=== PATIENT | male | born 1960 | race Caucasian/White ===

== ENCOUNTER → 2021-12-16 | Outpatient (CLI) | payer MEDICAID, SELFPAY ==
[2021-12-16 12:33] LABS: Microalbumin,Random Urine 9.8 mg/L (NO RANGE EST.); Microalbumin:Creatinine Ratio 10.4 mg/g CRE (<30 mg/g CRE)
[2021-12-16 12:34] LABS: AST(SGOT) 22 U/L (15-37); Alanine Aminotransfer ALT/SGPT 40 U/L (16-61); Albumin, Serum 3.8 g/dL (3.2-5.0); Alkaline Phosphatase 100 U/L (45-117); Anion Gap 7 (5-15); BUN 23 mg/dL (7-18); BUN/Creat Ratio 19.7 RATIO (10-20); Calcium,Total 9.2 mg/dL (8.5-10.1); Chloride 102 mmol/L (98-107); Cholesterol 128 mg/dL (200); Creatinine, Serum 1.17 mg/dL (0.70-1.30); EST Glomerular Filtration Rate 67 mL/min (>60); Est Glom Filt Rate - Afr Amer 81 mL/min (>60); Glucose 226 mg/dL (74-106); High Density Lipoprotein 34 mg/dL; Potassium 4.5 mmol/L (3.5-5.1); Protein, Total 7.8 g/dL (6.4-8.2); Sodium Level 136 mmol/L (136-145); Thyroid Stim Hormone (TSH) 1.94 uIU/mL (0.358-3.74); Triglycerides 221 mg/dL; Very Low Density Lipoprotein 44 mg/dL (5-40)
[2021-12-16 12:55] LABS: Vitamin D,25 Hydroxy 37.7 ng/mL
== END | disposition home or self-care (01) ==
LOC: BIMLAB 11:19
PROVIDERS: Referring Provider Nurse Practitioner Family; Visit Provider Nurse Practitioner Family
DX: E11.9 Type 2 diabetes mellitus without complications (principal)
CPT/HCPCS: 36415; 80053; 80061; 82043; 82306; 82570; 84443

== ENCOUNTER → 2022-03-18 | Outpatient (CLI) | payer MEDICAID, SELFPAY ==
--- NOTE | 2022-03-18 07:05 | ECHOD_ITS ---
Reason For Study: S/P CABG Procedure This was a 2D Doppler, Color Flow transthoracic echocardiogram. Exam performed in department. Left Ventricle Normal LV size. Left ventricular systolic function is normal. The estimated ejection fraction is 60 %. No regional wall motion abnormalities noted. Right Ventricle Normal RV size. Normal systolic function. Atria Normal left atrium. Normal right atrium. Mitral Valve Normal mitral valve. Tricuspid Valve Normal tricuspid valve. Aortic Valve Trisinus/trileaflet aortic valve. Mild focal aortic valve calcification. Pulmonic Valve Normal pulmonic valve. Trivial pulmonic valve insufficiency. Great Vessels Normal aortic root. The pulmonary artery is normal size. Normal inferior vena cava. Pericardium/Pleural No pericardial effusion. MMode/2D Measurements & Calculations LVIDd: 5.4 cm IVSd: 1.00 cm Ao root diam: 3.5 cm LVIDs: 4.1 cm FS: 24.5 % RVDd: 2.9 cm LAV(MOD-bp): 37.6 ml LVAd ap4: 29.5 cm2 SV(MOD-sp4): 39.4 ml LAV(MOD-bp) Indexed: 17.5 ml/m2 LVLd ap4: 7.8 cm LAV(MOD-sp2): 26.4 ml EDV(MOD-sp4): 90.5 ml LAV(MOD-sp4): 51.9 ml EDV(sp4-el): 94.3 ml LVAs ap4: 20.1 cm2 LVLs ap4: 6.8 cm ESV(MOD-sp4): 51.1 ml ESV(sp4-el): 50.1 ml EF(MOD-sp4): 43.5 % EF(sp4-el): 46.8 % SV(sp4-el): 44.2 ml LA A4 area: 19.6 cm2 LA dimension(2D): 4.5 cm RA A4 area: 15.5 cm2 Time Measurements MV dec time: 0.22 sec Doppler Measurements & Calculations MV E max jaylen: 62.6 cm/sec Lat Peak E' Jaylen: 9.3 cm/sec Med Peak E' Jaylen: 5.1 cm/sec MV A max jaylen: 84.5 cm/sec E/E' lat: 6.7 E/E' med: 12.2 MV E/A: 0.74 MV V2 max: 78.3 cm/sec Ao V2 max: 142.1 cm/sec MV max P.5 mmHg MV dec slope: 298.1 cm/sec2 Ao max P.1 mmHg MV V2 mean: 45.4 cm/sec Ao V2 mean: 98.9 cm/sec MV mean P.92 mmHg Ao mean P.5 mmHg MV V2 VTI: 24.0 cm Ao V2 VTI: 29.2 cm LV V1 max: 104.3 cm/sec PA V2 max: 105.1 cm/sec TR max jaylen: 230.3 cm/sec LV V1 max P.4 mmHg PA V2 mean: 68.4 cm/sec TR max P.2 mmHg LV V1 mean P.3 mmHg LV V1 mean: 71.0 cm/sec LV V1 VTI: 19.8 cm ECHO/Echo Complete Interpretation Summary Normal LV size. Left ventricular systolic function is normal. The estimated ejection fraction is 60 %. Mild focal aortic valve calcification. Ordering Physician: Noam Rodriguez Referring Physician: Noam Rodriguez Performed By: Migdalia Ledesma RCS
--- NOTE | 2022-03-18 16:55 | STRESSREP_ITS ---
Stress Test Report Exercise myocardial perfusion stress test. 61-year-old man with a history of coronary artery disease Stress protocol: Resting KG demonstrates normal sinus rhythm with a rate of 62 bpm normal intervals are noted resting blood pressure is 124/88 mmHg. The patient exercised according to regular Gerhard protocol for total duration of 5 minutes a nd 31 seconds. The maximum heart rate attained was 126 bpm which was 80% of max impacted heart rate the maximum workload was 7 metabolic equivalents. At rest there were no ST or T wave changes noted suggest ischemia at peak exercise upsloping ST changes were noted with did not meet the criteria for ischemia. Occasional premature ventricular complexes were noted. The peak blood pressure was 172/80 mmHg. Myocardial perfusion protocol. 11.8 mCi of technetium 99m sestamibi was injected at rest. The patient exercised according to regular Gerhard protocol and at peak exercise 34.7 mCi of technetium 99m sestamibi was injected stress images were obtained stress and rest images were reconstructed in comparing the short axis vertical long and horizontal long axis. Gated images were also obtained to Perfusion SPECT analysis: Review of the stress images demonstrate normal uptake of tracer noted in the anterior wall and lateral wall. A small portion of the anteroseptal wall and the inferior septal wall towards the apex demonstrates reduced perfusion which is improved on the resting images. The above is suggestive of inferoseptal and apical ischemia and basal anteroseptal ischemia. No obvious previous infarct is noted. Gated SPECT analysis: The gated ejection fraction is 43%. Conclusion: Abnormal exercise myocardial perfusion stress test at a moderate workload. Inferoseptal and apical ischemia noted Basal anteroseptal ischemia noted. Mild cardiomyopathy.
== END | disposition home or self-care (01) ==
LOC: CVS 07:02
PROVIDERS: PCP Family Medicine; Referring Provider Internal Medicine Cardiovascular Disease; Visit Provider Internal Medicine Cardiovascular Disease
DX: I25.10 Atherosclerotic heart disease of native coronary artery without angina pectoris (principal); Z95.1 Presence of aortocoronary bypass graft
CPT/HCPCS: 78452; 93017; 93306; A9500; A4216

== ENCOUNTER → 2022-03-25 | Outpatient (CLI) | payer MEDICAID, SELFPAY ==
--- NOTE | 2022-03-25 09:50 | RAD_ITS ---
INDICATION: dyspnea EXAMINATION/TECHNIQUE: X-RAY - XR Chest 2 Views COMPARISON: None. FINDINGS: LINES/DEVICES: None. LUNGS: Asymmetric elevation right hemidiaphragm. No airspace opacity or abnormal interstitial pattern. No nodule or mass. No pleural effusion or pneumothorax. MEDIASTINUM AND CARDIOVASCULAR STRUCTURES: Normal size and contour of the cardiomediastinal silhouette. No evidence of pulmonary vascular congestion. Sternotomy wires with fractured inferior sternotomy wire. Surgical clips seen along the inferior right lateral cardiac shadow and in the right upper lobe. Intimal calcifications thoracic aorta. BONES AND SOFT TISSUES: No fracture or focal osseous lesion. RAD/Chest PA and Lateral IMPRESSION: 1. No radiographic evidence of acute cardiopulmonary disease. 2. Asymmetric elevation right hemidiaphragm with moderate volume loss may be associated with prior partial lobectomy. 3. Prior thoracotomy. Electronically Signed: Dale Burrell DO at 20:26 EDT ,
== END | disposition home or self-care (01) ==
LOC: RAD 09:46
PROVIDERS: PCP Family Medicine; Referring Provider Internal Medicine Cardiovascular Disease; Visit Provider Internal Medicine Cardiovascular Disease
DX: R06.09 Other forms of dyspnea (principal); I82.409 Acute embolism and thrombosis of unspecified deep veins of unspecified lower extremity; E11.9 Type 2 diabetes mellitus without complications; I25.10 Atherosclerotic heart disease of native coronary artery without angina pectoris; I10 Essential (primary) hypertension; E78.5 Hyperlipidemia, unspecified; Z95.1 Presence of aortocoronary bypass graft; Z86.73 Personal history of transient ischemic attack (TIA), and cerebral infarction without residual deficits
CPT/HCPCS: 71046

== ENCOUNTER 2022-03-28 06:52 | Day surgery (SDC) | payer MEDICAID, SELFPAY ==
[2022-03-25 09:37] VITALS: BMI 29.7
[2022-03-25 10:37] LABS: Absolute Lymphocyte Count 1.62 X10^3/uL (0.83-4.51); Absolute Neutrophil Count 3.3 X10^3/uL (2.0-7.7); Basophil# 0.04 X10^3/uL; Basophil% 0.7 % (0-1); Eosinophil# 0.13 X10^3/uL; Eosinophils% 2.4 % (0-5); Hematocrit 47.2 % (40-54); Hemoglobin 17.1 g/dL (13.0-16.5); Lymphocyte # 1.62 X10^3/ul (0.83-4.51); Lymphocyte % 29.5 % (19-41); Mean Corp Hgb Conc 36.2 g/dL (32-36); Mean Corpuscular Hgb 31.3 pg (27.0-32.0); Mean Corpuscular Volume 86.4 fL (80-94); Mean Platelet Vol. 8.9 fl (6.2-12.0); Monocyte# 0.42 X10^3/uL; Monocyte% 7.6 % (0-10); NRBC Flagged by Analyzer 0 % (0-5); Neutrophil # 3.28 X10^3/uL (2.7-7.7); Neutrophil % 59.6 % (47-70); Platelet Count 160 K/mm3 (150-450); RBC Distribution Width SD 40.3 fl (35.1-43.9); Red Blood Count 5.46 M/mm3 (4.6-6.2); White Blood Count 5.5 K/mm3 (4.4-11.0)
[2022-03-25 10:53] LABS: Anion Gap 6 (5-15); BUN 17 mg/dL (7-18); BUN/Creat Ratio 14.2 RATIO (10-20); Calcium,Total 9.2 mg/dL (8.5-10.1); Chloride 104 mmol/L (98-107); EST Glomerular Filtration Rate 65 mL/min (>60); Est Glom Filt Rate - Afr Amer 79 mL/min (>60); Estimated Creatinine Clearance 65.06 ml/min; Glucose 253 mg/dL (74-106); Potassium 4.4 mmol/L (3.5-5.1); Sodium Level 139 mmol/L (136-145)
--- NOTE | 2022-03-28 09:19 | CL.D_ITS ---
Patient Name: HARJEET CONTRERAS Study Date: 03/28/2022 Performing: Noam Rodriguez MD Ht: 70.5 inches 179.07 cm : 1960 Wt: 209.99 lbs 95.25 kg Age: 62 Gender: male BSA: 2.14 PROCEDURE(S) PERFORMED DC03-(20508)LHC/COR/LV/CABG CLINICAL PROFILE AND INDICATIONS Indications: Suspected CAD Heart Failure: None Stress/Imaging Date: 03/18/22Stress Test with SPECT MPI: Positive Intermediate Risk CAD Presentations: Other: sob CONCLUSIONS Severe coronary artery disease with totally occluded [place] vessels and an occluded saphenous vein graft to the right coronary artery. The RESENDIZ and ROSAMARIA to the LAD and circumflex artery systems are patent but with severe diffuse distal disease not amenable to PCI RECOMMENDATIONS Medical therapy DESCRIPTION OF PROCEDURE The patient arrived to the procedure lab. The risks and benefits of the procedure as well as a full description of our services here and current unavailability of surgical backup were fully explained to the patient and/or their significant other prior to the catheterization. The Timeout was completed, verifying the correct patient and procedure. The patient's procedural site was prepped and draped in the usual fashion. Local anesthetic was given subcutaneously to right groin region with Lidocaine 2%. Using a modified Seldinger technique, arterial access was obtained via the right femoral artery, a 5Fr sheath was inserted. Left Coronary Artery selective angiography was performed in multiple views using a 5 Fr. JL4 catheter. Right Coronary Artery selective angiography was then performed in multiple views using a 5 Fr. 3DRC (Braulio) catheter. Saphenous Vein graft to the PDA, Radial T graft to OM selective angiography was performed in single view using a 5 Fr. 3DRC (Braulio) catheter. Left internal mammary artery graft to the LAD selective angiography was performed in multiple views using a 5 Fr. 3DRC (Braulio) catheter. Left Ventriculography was performed in CASTILLO projection using a 5 Fr. Pigtail catheter. LV to AO pullback pressures were then recorded.The arterial sheath was pulled and a Mynx closure device was deployed for hemostasis CORONARY ANGIOGRAPHY DOMINANCE: Right Dominant LEFT HEART ASSESSMENT Left Ventricular Ejection Fraction: by LV Gram 55 % Inferior Basal Hypokinesis - Severe Normal Left Ventricular systolic function LEFT MAIN: Moderate calcification, Moderate luminal irregularities up to 50% LEFT ANTERIOR DESCENDING ARTERY: PROX LAD: is occluded CIRCUMFLEX ARTERY: PROX CIRC: is occluded RIGHT CORONARY ARTERY: PROX RCA: is occluded DISTAL RCA: Distal right coronary artery fills via collaterals from the LAD and circumflex artery systems GRAFTS: Saphenous Vein graft to the RCA is totally occluded RESENDIZ graft to the Mid LAD This vessel is patent but the distal LAD and diagonal which with feeds are severely diseased and supplied collaterals to the right coronary artery ROSAMARIA graft to the Acute Marginal is patent COLLATERAL FLOW: Collateral flow from Left to Right COMPLICATIONS No Complications PROCEDURE MEDICATIONS Versed 1 mg IV Versed 1 mg IV Oxygen: 2 L/min via nasal cannula SUMMARY OF HEMODYNAMIC DATA Time AIR REST ECG 07:15:22 AO 138/97 (117) SA 08:39:28 LV 137/18, 26 08:49:01 LV 138/17, 25 08:49:10 LV 131/19, 27 08:50:11 LVp 131/19, 26 08:50:15 AOp 137/-28 (71) 08:50:22 09:08:07 Signed By Noam Rodriguez MD On 03/28/2022 09:18:59 Noam Rodriguez MD
== END 2022-03-28 11:35 | disposition home or self-care (01) ==
LOC: CLSP 06:53
PROVIDERS: PCP Family Medicine; Referring Provider Internal Medicine Cardiovascular Disease; Visit Provider Internal Medicine Cardiovascular Disease
DX: I25.10 Atherosclerotic heart disease of native coronary artery without angina pectoris (principal); E11.9 Type 2 diabetes mellitus without complications; I25.810 Atherosclerosis of coronary artery bypass graft(s) without angina pectoris; R06.09 Other forms of dyspnea; I10 Essential (primary) hypertension; E66.3 Overweight; Z68.29 Body mass index [BMI] 29.0-29.9, adult; Z95.1 Presence of aortocoronary bypass graft; Z91.14 Patient's other noncompliance with medication regimen; Z79.82 Long term (current) use of aspirin; Z79.84 Long term (current) use of oral hypoglycemic drugs; Z79.899 Other long term (current) drug therapy; Z86.73 Personal history of transient ischemic attack (TIA), and cerebral infarction without residual deficits; Z86.718 Personal history of other venous thrombosis and embolism
CPT/HCPCS: 36415; 80048; 85025; 93459; 99152; 99153; C1760; J7040; Q9967

== ENCOUNTER → 2023-01-02 | Outpatient (CLI) | payer MEDICAID, SELFPAY ==
--- NOTE | 2023-01-02 07:41 | VDLE_ITS ---
Reason For Study: Leg pain and swelling RIGHT LEFT CFV is compressible, spontaneous, phasic, HX of GSV harvest for prior CABG surgery. competent and demonstrates normal CFV-FV-POP V and T/P Trunk all appear augmentation. partially compressible with hyperechoic web- FV is compressible, spontaneous, phasic, like echoes consistent with chronic DVT. Flow competent and demonstrates normal is seen in color and pulsed wave doppler. augmentation. Distal FV appears INCOMPETENT with a reflux POP V is compressible, spontaneous, phasic, of >1 second. competent and demonstrates normal PTV is compressible. augmentation. LT PerV is compressible. T/P Trunk is compressible. PTV is compressible. RT PerV is compressible. Procedure This is a venous duplex using B-mode, color flow and spectral Doppler. Exam performed in department. The exam was diagnostic. VL/Venous Duplex US - Eder Extrem Interpretation Summary Right no DVT. Left chronic DVt in veins listed. Ordering Physician: Ebenezer Ortega Referring Physician: Carlos A Alegre MD Performed By: Maximo Khan RVT
--- NOTE | 2023-01-02 07:41 | CDU_ITS ---
Reason For Study: Carotid Stenosis Rt. Velocities/BP Lt. Velocities/BP Prox CCA 94.9/23.7 cm/sec. Prox CCA 92.8/22.8 cm/sec. Mid CCA 87.6/20.0 cm/sec. Mid CCA 69.5/20.4 cm/sec. Dist CCA 70.4/17.6 cm/sec. Dist CCA 81.8/20.4 cm/sec. Prox ICA 57.0/15.1 cm/sec. Prox ICA 62.0/15.7 cm/sec. Mid ICA 51.4/18.7 cm/sec. Mid ICA 48.9/21.0 cm/sec. Dist ICA 41.4/18.5 cm/sec. Dist ICA 41.4/16.5 cm/sec. Rt. ICA/CCA = 0.7. Lt. ICA/CCA = 0.9. Prox ECA 45.5/5.7 cm/sec. Prox ECA 43.1/5.3 cm/sec. Rt. Vert. 29.6/6.4 cm/sec. Lt. Vert. 39.6/9.7 cm/sec. Right Extracranial There is homogeneous, smooth atherosclerotic plaque noted in the right common carotid artery. There is heterogeneous, irregular atherosclerotic plaque noted in the right internal carotid artery. The right internal carotid artery is very tortuous. There is heterogeneous, irregular atherosclerotic plaque noted in the right external carotid artery. Antegrade flow is noted in the right vertebral artery. Left Extracranial There is homogeneous, smooth atherosclerotic plaque noted in the left common carotid artery. There is heterogeneous, irregular atherosclerotic plaque noted in the left internal carotid artery. The left internal carotid artery is very tortuous. There is intimal thickening but no significant atherosclerotic plaque noted in the left external carotid artery. Antegrade flow is noted in the left vertebral artery. Procedure Carotid Duplex 28632. This is a Carotid Duplex examination using B-mode, color flow and specral Doppler. The exam was diagnostic. Exam performed in department. VL/Carotid Duplex Ultrasound Interpretation Summary Mild (<50%) stenosis right extracranial internal carotid. Mild (<50%) stenosis left extracranial internal carotid. Flow within the vertebral arteries is antegrade bilaterally. Ordering Physician: Ebenezer Ortega Referring Physician: Carlos A Alegre MD Performed By: Maximo Khan RVT
== END | disposition home or self-care (01) ==
LOC: CVS 07:40
PROVIDERS: PCP Family Medicine; Referring Provider Surgery Vascular Surgery; Visit Provider Surgery Vascular Surgery
DX: M79.89 Other specified soft tissue disorders (principal); I63.9 Cerebral infarction, unspecified; M79.604 Pain in right leg; M79.605 Pain in left leg; I65.23 Occlusion and stenosis of bilateral carotid arteries; Z86.718 Personal history of other venous thrombosis and embolism
CPT/HCPCS: 93880; 93970

== ENCOUNTER → 2023-04-19 | Outpatient (CLI) | payer MEDICARE, MEDICAID, SELFPAY ==
[2023-04-19 15:44] LABS: Microalbumin,Random Urine < 5.0 mg/L (NO RANGE EST.)
[2023-04-19 16:14] LABS: AST(SGOT) 21 U/L (15-37); Alanine Aminotransfer ALT/SGPT 40 U/L (16-61); Albumin, Serum 3.8 g/dL (3.2-5.0); Alkaline Phosphatase 102 U/L (45-117); Anion Gap 7 (5-15); BUN 21 mg/dL (7-18); BUN/Creat Ratio 15.6 RATIO (10-20); Chloride 104 mmol/L (98-107); Cholesterol 126 mg/dL (200); Creatinine, Serum 1.35 mg/dL (0.70-1.30); EST Glomerular Filtration Rate 57 mL/min (>60); Est Glom Filt Rate - Afr Amer 68 mL/min (>60); Globulin 3.9 g/dL (2.2-4.2); Glucose 141 mg/dL (74-106); High Density Lipoprotein 30 mg/dL; Protein, Total 7.7 g/dL (6.4-8.2); Sodium Level 138 mmol/L (136-145); Thyroid Stim Hormone (TSH) 1.57 uIU/mL (0.358-3.74); Triglycerides 228 mg/dL; Very Low Density Lipoprotein 46 mg/dL (5-40)
[2023-04-19 16:16] LABS: Vitamin D,25 Hydroxy 38.9 ng/mL
== END | disposition home or self-care (01) ==
PROVIDERS: PCP Family Medicine; Visit Provider Nurse Practitioner Family
DX: E11.9 Type 2 diabetes mellitus without complications (principal)
CPT/HCPCS: 36415; 80053; 80061; 82043; 82306; 82570; 84443